=== PATIENT | male | born 1995 | race Caucasian/White ===

== ENCOUNTER 2025-02-17 21:22 | Emergency (ER) | payer BC, SELFPAY ==
--- OUTSIDE RECORDS SUMMARY | 2018-04-23 02:45 | XMS_ITS | Continuity of Care Document ---
Author Organization [facility] Address [address] [place] [address] Phone Care Team Providers Care Heater Worker Name Role Phone Maribel Quevedo MD Unavailable Unavailable Allergies, Adverse Reactions, Alerts Substance Reaction Status Criticality Penicillins Active No Information Medications Medication Instructions Dosage Effective Dates (start - stop) Status Comments ibuprofen 800 mg tablet take 1 tablet by oral route 3 times every day with food as needed 800 MG - Active [place] 5 mg-325 mg tablet take 1 tablets by oral route every 8 hours as needed for pain as needed - Active take ibuprofen every 8 hours alternating with norco to help with pain between norco doses Adderall XR 20 mg capsule,extended release take 1 capsule by oral route every day in the morning upon awakening 20 MG - Active Procedures Procedure Date POSTOP FOLLOW-UP VISIT POSTOP FOLLOW-UP VISIT OFFICE/OUTPATIENT VISIT NEW Advance Directives Directive Yes / No Effective Date File Name No Information Encounters Encounter Description Practice Location Reason(s) For Visit Diagnoses Date Provider Providers Copied on Encounter [facility], [address] [place] [address], [address], [place] tel:[phone] [facility] Follow Up of RT fourth metacarpal base fx 03/02/18 (chief complaint) Displaced fracture of base of fourth metacarpal bone, right hand, subsequent encounter for fracture with routine healing 9 Sae López. [address], [place], [id number] . tel: [phone] [facility], [address] [place] [address], [address], [place] tel:[phone] [facility] Closed displaced fracture of base of fourth metacarpal bone of right hand, initial encounter 8 Sae López. [address], [place], [id number] . tel: [phone] OFFICE/OUTPAT IENT VISIT [facility], [address] [place], [place] [address], [place], [address], tel:[phone] [facility] [employer] hand injury 03/02/18 (chief complaint) Body mass index (BMI) 36.0-36.9, adultClosed displaced fracture of base of fourth metacarpal bone of right hand, initial encounter 8 Sae López. [address], [place], [id number] . tel: [phone] Family History Family Member Type Diagnosis Age At Onset Brother Problem (finding) Alive and well Father Problem (finding) Alive and well Mother Problem (finding) Alive and well Payers Payer name Insurance type Covered democrat ID Authoriza tion(s) Blue Access Choice PPO E2 [id number] Social History Type Description Quantity Date Captured Comments Alcohol Use Details Unknown Caffeine Use Details Unknown Tobacco Use Status Heavy cigarette smok er (20-39 cigs/day) Smoking Status Heavy tobacco smoker Smoking Tobacco Use Details Cigarette: Years Used 1 Cigarette: 1 Packs per day, Pack Year: 1 Sex Male Chief Complaint And Reason For Visit From encounter dated '04/23/2018 08:45'. Follow Up of RT fourth metacarpal base fx 03/02/18 (chief complaint) Reason For Referral Reason For Referral No Information Plan Of Treatment Date Type Action Status Goal Tobacco cessation counseling completed Referral Ordered: RADEX HAND MINIMUM 3 VIEWS RT ordered History Of Present Illness Encounter Date Complaint History Of Prese nt Illness Follow Up of RT four th metacarpal base fx 03/02/18 [employer] hand injury 03/02/18 Functional Status Date Functional Assessmen t No Information Instructions Date Instruction Additional Infor mation Apply ice as tolerated. Related to Closed displaced fracture of base of fourth metacarpal bone of right hand, initial encounter Take medication as directed. Rel ated to Closed displaced fracture of base of fourth metacarpal bone of right hand, initial encounter Elevate extremity above heart. R elated to Closed displaced fracture of base of fourth metacarpal bone of right hand, initial encounter Immobilize as directed. Related to Closed displaced fracture of base of fourth metacarpal bone of right hand, initial encounter Apply ice as tolerated. Related to Closed displaced fracture of base of fourth metacarpal bone of right hand, initial encounter Elevate extremity above heart. R elated to Closed displaced fracture of base of fourth metacarpal bone of right hand, initial encounter Immobilize as directed. Related to Closed displaced fracture of base of fourth metacarpal bone of right hand, initial encounter Apply ice as tolerated. Related to Closed displaced fracture of base of fourth metacarpal bone of right hand, initial encounter Giving encouragement to exercise Related to Body mass index (BMI) 36.0-36.9, adult Assessments Type Assessment Date assessment Displaced fracture o f base of fourth metacarpal bone, right hand, subsequent encounter for fracture with routine healing Patient Care Teams Name Effective Dates (start - stop) Status Members No Information
[2025-02-17 21:20] VITALS: BP 141/73; PULSE 106; RESP 23; TEMP 36.8; O2SAT 97
--- NOTE | 2025-02-17 21:36 | ECG_ITS ---
Test Date: 2025-02-17 21:28:41 Measurements Intervals [place] Rate: 106 P: 67 AK: 144 QRS: 68 QRSD: 95 T: 42 QT: 310 QTc: 413 Interpretive Statements SINUS TACHYCARDIA OTHERWISE NORMAL ELECTROCARDIOGRAM No previous ECG available for comparison Electronically Signed On 02-18-2025 07:33:55 FURNACE PROCESS PLANT OPERATOR by Chidi Landon M.D.
[2025-02-17 22:07] LABS: Hematocrit 41.6 % (42.0-52.0); Hemoglobin 14.2 g/dL (14.0-18.0); Immature Granulocyte Percent A 1.1 % (0-0.5); Lymphocytes Absolute Auto 1.55 K/mm3 (0.9-3.2); Mean Corpuscular HGB Conc 34.1 g/dl (32-36); Mean Corpuscular Hemoglobin 31.3 pg (26-34); Mean Corpuscular Volume 91.6 fl (80-100); Nucleated Red Blood Cells Absolute Auto 0.000 K/mm3 (0.0-0.012); Nucleated Red Blood Cells Perc 0.0 % (0.0-0.2); Platelet Count Result 262 k/mm3 (150-375); Red Blood Count 4.54 M/mm3 (4.6-6.20); White Blood Count 7.0 K/mm3 (4.5-10.0)
[2025-02-17 22:24] LABS: Alanine Aminotransferase 34 U/L (6-50); Albumin Level 4.0 g/dL (3.5-5.1); Alkaline Phosphatase 78 U/L (38-126); Anion Gap 8 mmol/L (4-12); Aspartate Amino Transferase 36 U/L (17-59); Bilirubin,Total 0.3 mg/dL (0.2-1.3); Blood Urea Nitrogen 14 mg/dL (9-20); Calcium 9.1 mg/dL (8.4-10.2); Carbon Dioxide 27 mmol/L (22-30); Chloride 105 mmol/L (98-107); Estimated CRCL calculation 140 ml/min; Estimated Glomerular Filt Rate > 60; Glucose 113 mg/dL (65-110); Potassium 3.5 mmol/L (3.4-5.0); Sodium 140 mmol/L (137-145); Total Protein 6.8 g/dL (6.3-8.2)
[2025-02-17 23:00] VITALS: BP 128/68; PULSE 98; RESP 22; O2SAT 100
--- NOTE | 2025-02-17 23:34 | ED_ITS ---
HPI - Seizure General Chief Complaint: Seizure Stated Complaint: SEIZURE Time Seen by Provider: 02/17/25 22:53 History of Present Illness HPI Narrative: 30-year-old male with history of TBI and epilepsy presenting to the emergency department after a witnessed seizure. Patient's last seizure was over 2 years ago and previously was on Keppra 1000 mg b.i.d. but states he was not compliant with his medication actually stop taking it. Today he had a witnessed seizure by his dad was at bedside. Patient exhibited loss of consciousness and staring off the space with tonic activity that lasted 2-3 minutes. No head trauma or falls. Regained consciousness and was postictal for 10-15 minutes until ambulance arrived. Currently is awake alert oriented at baseline. Answering all my questions appropriately. States ?I feel stupid for stopping my Keppra, not my smartest move. He has no complaints at this time. No signs of head injury trauma. Answering everything appropriately. Moving extremities without any weakness or sensation deficits. Mildly tachycardic but resolved without any intervention. Placed on graduate studies dean and seizure precautions. No other recent health concerns. No recent medications and does not take anything substance haney. Related Data Allergies Allergy/AdvReac Type Severity Reaction Status Date / Time Penicillins Allergy Unknown Verified 08/13/15 17:32 Review of Systems 2 Review of Systems: As reviewed above in HPI Exam 2 Narrative: GENERAL: [Well-appearing, well-nourished, and in no acute distress.] HEAD: [Normocephalic, atraumatic.] EYES: [PERRLA and EOMI.] ENT: Nares clear, no rhinorrhea or epistaxis. Mucous membranes moist. NECK: Supple. CHEST: [Clear to auscultation. No respiratory distress.] HEART: [Regular rate and rhythm]. No murmur heard. [Normal peripheral pulses.] ABDOMEN: [Soft, nondistended], [nontender], [No rigidity or guarding] EXTREMITIES: Normal range of motion. [No edema.] SKIN: Warm, dry, no rash. NEURO: [No focal deficits]. Alert and oriented [x3.] PSYCH: [Normal mood and affect.] Course Vital Signs Vital signs: Vital Signs Temperature 36.8 C 02/17/25 21:20 Pulse Rate 106 H 02/17/25 21:20 Respiratory Rate 23 H 02/17/25 21:20 Blood Pressure 141/73 H 02/17/25 21:20 Pulse Oximetry 97 02/17/25 21:20 Oxygen Delivery Room Air 02/17/25 21:20 Temperature 36.8 C 02/17/25 21:20 Pulse Rate 87 02/18/25 00:46 Respiratory Rate 19 02/18/25 00:46 Blood Pressure 110/72 02/18/25 00:46 Pulse Oximetry 98 02/18/25 00:46 Oxygen Delivery Room Air 02/17/25 21:20 MDM - Seizure MDM Narrative Medical decision making narrative: 30-year-old male with history of TBI and epilepsy presenting to the emergency department after a witnessed seizure. Patient's last seizure was over 2 years ago and previously was on Keppra 1000 mg b.i.d. but states he was not compliant with his medication actually stop taking it. Today he had a witnessed seizure by his dad was at bedside. Patient exhibited loss of consciousness and staring off the space with tonic activity that lasted 2-3 minutes. No head trauma or falls. Regained consciousness and was postictal for 10-15 minutes until ambulance arrived. Currently is awake alert oriented at baseline. Answering all my questions appropriately. States ?I feel stupid for stopping my Keppra, not my smartest move. He has no complaints at this time. No signs of head injury trauma. Answering everything appropriately. Moving extremities without any weakness or sensation deficits. Mildly tachycardic but resolved without any intervention. Placed on graduate studies dean and seizure precautions. No other recent health concerns. No recent medications and does not take anything substance haney. Patient initially was postictal and resolved. Seizure was witnessed by family. First breakthrough seizure in almost 2 years. No recent health concerns but patient did stop taking his Keppra. He is answering appropriately and no longer postictal. Returned to baseline mentation and observed for several hours here in the emergency department. Basic laboratory studies showed no electrolyte deficiencies, leukocytosis or anemia. Normal glucose. Lactic acid mildly elevated consistent with seizure activity. Patient felt good to go home and requested being prescribed new dose of Keppra until he can see his neurologist. Safe for discharge after brief observation. In the ED with return to baseline. Discussed return precautions with patient and family. Medical Records Attestation: I reviewed the patient's medical records. Lab Data Attestation: I reviewed the patient's lab results. 02/17/25 21:55 02/17/25 21:55 Labs: Lab Results 02/17/25 02/18/25 Range/Units 21:55 00:22 WBC 7.0 (4.5-10.0) K/mm3 RBC 4.54 L (4.6-6.20) M/mm3 Hgb 14.2 (14.0-18.0) g/dL Hct 41.6 L (42.0-52.0) % MCV 91.6 (80-100) fl MCH 31.3 (26-34) pg MCHC 34.1 (32-36) g/dl RDW 12.2 (11.5-14.5) % Plt Count 262 (150-375) k/mm3 MPV 8.6 (7.4-10.4) fl Immature Gran % (Auto) 1.1 H (0-0.5) % Neut % (Auto) 65.2 (45.5-73.1) % Lymph % (Auto) 22.2 (18.3-44.2) % [place] % (Auto) 7.2 (2.6-8.5) % Eos % (Auto) 3.6 (0-4.4) % Baso % (Auto) 0.7 (0.2-1.2) % Lymph # (Auto) 1.55 (0.9-3.2) K/mm3 [place] # (Auto) 0.5 (0.1-0.6) K/mm3 Eos # (Auto) 0.3 (0-0.3) K/mm3 Baso # (Auto) 0.1 (0.0-0.1) K/mm3 Abs Immat Gran (auto) 0.08 H (0.00-0.031) K/mm3 Absolute Neuts (auto) 4.5 (1.3-6.7) K/mm3 Absolute Nucleated RBC 0.000 (0.0-0.012) K/mm3 Nucleated RBC % 0.0 (0.0-0.2) % Sodium 140 (137-145) mmol/L Potassium 3.5 (3.4-5.0) mmol/L Chloride 105 (98-107) mmol/L Carbon Dioxide 27 (22-30) mmol/L Anion Gap 8 (4-12) mmol/L BUN 14 (9-20) mg/dL Creatinine 0.81 (0.7-1.3) mg/dL Estim Creat Clear Calc 140 ml/min Estimated GFR > 60 (59 - ) Glucose 113 H (65-110) mg/dL Lactic Acid 2.7 H 1.0 (0.7-2.0) mmol/L Calcium 9.1 (8.4-10.2) mg/dL Total Bilirubin 0.3 (0.2-1.3) mg/dL AST 36 (17-59) U/L ALT 34 (6-50) U/L Alkaline Phosphatase 78 (38-126) U/L Total Protein 6.8 (6.3-8.2) g/dL Albumin 4.0 (3.5-5.1) g/dL Discharge Plan Discharge Clinical Impression: Breakthrough seizure Patient Disposition: Home Condition: Stable Instructions: Antibiotic Form, Epilepsy (DC) Additional Instructions: Symptoms consistent with a breakthrough seizure. Will need to be on b.i.d. dosing of Keppra for long-term maintenance. Laboratory studies are reassuring. Return with any recurrent seizure activity, worsening symptoms or new emergent concerns otherwise follow-up with your primary doctor and neurologist. We have sent you a prescription for Keppra to fill your pharmacy. You received a dose IV here. Patient Language: Italian Prescriptions: New levetiracetam [Keppra] 1,000 mg tablet 1,000 mg PO BID 30 Days Qty: 60 2RF Follow-up/Referrals: Lorri,aNlini Alonso MD [Primary Care Provider] Time of Disposition: 23:43
--- OUTSIDE RECORDS SUMMARY | 2025-02-17 23:53 | XMS_ITS | Clinical Summary ---
Author Organization [facility] Address [address] [place] [address] Care Team Providers Care Airport Refueling Handler Name Role Phone Unavailable Primary Care Provider Unavailabl e Allergies Active Allergy Reactions Criticality Noted Date Comments Penicillins Hives 03/03/2018 Penicillins Rash 09/02/2018 Medications acetaminophen (TYLENOL EXTRA STRENGTH) 500 mg tablet Take 2 Tablets (1,000 mg) by mouth every 6 hours as needed for Pain. 60 Tablet 03/03/2018 Active morphine (MS IR) 15 mg tablet Take 1 Tablet (15 mg) by mouth every 4 hours as needed for Pain. Max Daily Amount: 90 mg 9 Tablet 03/03/2018 Active escitalopram oxalate (LEXAPRO) 10 mg tablet Take 10 mg by mouth daily. Active Active Problems No known active problems Social History Tobacco Use Types Packs/Day Years Used Date Smoking Tobacco: Every Day Cigarettes Smokeless Tobacco: Never Alcohol Use Standard Drinks/Week Comments No 0 (1 standard drink = 0.6 oz pur e alcohol) Sex and Gender Information Value Date Recorded Sex Assigned at Not on file Legal Sex Male 7:40 PM CDT Gender Identity Not on file Sexual Orientation Not on file Last Filed Vital Signs Vital Sign Reading Time Taken Comments Blood Pressure 119/74 09/02/2018 8:24 AM CDT Pulse 76 09/02/2018 8:24 AM CDT Temperature 36.4 C (97.6 F) 09/02/2018 8:24 AM CDT Respiratory Rate 18 09/02/2018 8:24 AM CDT Oxygen Saturation 97% 09/02/2018 8:24 AM CDT Inhaled Oxygen Concentration - - Weight 104.3 kg (230 lb) 09/02/2018 8:24 AM CDT Height 175.3 cm (5' 9) 09/02/2018 8:24 AM CDT Body Mass Index 33.97 09/02/2018 8:24 AM CDT Plan of Treatment Health Maintenance Due Date Last Done Comments DTAP/TDAP/TD VACCINES (1 - Tdap) 02/16/2012 HEPATITIS B VACCINES (1 of 3 - 19+ 3-dose series) 01/25 HPV VACCINES (1 - 3-dose SCDM series) 02/16/2020 INFLUENZA VACCINE (#1) 2024 Insurance BCBS EXCHANGE BLUE [employer]ract[employer] CHOICE
--- OUTSIDE RECORDS SUMMARY | 2025-02-17 23:53 | XMS_ITS | Clinical Summary ---
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 Gender Identity Not on file Sexual Orientation Not on file Plan of Treatment Health Maintenance Due Date Last Done Comments Annual Physical 02/16/1996 Hepatitis C 2011 DTaP, Tdap and Td Vaccines ( 1 - Tdap) 02/16/2012 Hepatitis B Vaccines (1 of 3 - 19+ 3-dose series) 02/16/2012 HPV Vaccines (1 - 3-dose SCD M series) 02/16/2020 COVID-19 Vaccine ( - 2024-2 6 season) 2024 Influenza Adult (#1) 2024 Hepatitis A Vaccines Aged Out No long er eligible based on patient's age to complete this topic Meningococcal B Vaccine Aged Out No l onger eligible based on patient's age to complete this topic Meningococcal Vaccine Aged Out No inderjit charles eligible based on patient's age to complete this topic Pneumococcal Vaccine: Pediat rics (0 to 5 Years) and At-Risk Patients (6 to 49 Years) Aged Out No longer eligible b ased on patient's age to complete this topic RSV Immunizations Under 20 Months Aged Out No longer eligible based on patient's age to complete this topic
[2025-02-18] MEDS: levETIRAcetam 1000MG/NACL100ML 1,000 MG/100 ML BAG 400 MG IVPB (00:12)
[2025-02-18 00:13] VITALS: BP 121/77; PULSE 77; RESP 18; O2SAT 98
[2025-02-18 00:16] VITALS: BP 119/58; PULSE 84; RESP 20; O2SAT 98
[2025-02-18 00:31] VITALS: BP 121/67; PULSE 94; RESP 20; O2SAT 98
[2025-02-18 00:32] VITALS: PULSE 86; RESP 15
[2025-02-18 00:45] VITALS: PULSE 87; RESP 19
[2025-02-18 00:46] VITALS: BP 110/72; PULSE 87; RESP 19; O2SAT 98
== END 2025-02-18 00:52 | disposition home or self-care (01) ==
PROVIDERS: Emergency Provider Student in an Organized Health Care Education/Training Program; PCP Family Medicine
DX: G40.909 Epilepsy, unspecified, not intractable, without status epilepticus (principal); Z87.820 Personal history of traumatic brain injury; T42.6X6A Underdosing of other antiepileptic and sedative-hypnotic drugs, initial encounter; Z91.128 Patient's intentional underdosing of medication regimen for other reason
CPT/HCPCS: 36415; 80053; 83605; 85025; 93005; 96365; 99284; J1953